=== PATIENT | male | born 1970 | race Caucasian/White ===

== ENCOUNTER 2020-10-05 01:48 | Day surgery (SDC) | payer BC, SELFPAY ==
[2020-09-24 14:19] VITALS: BMI 31.2
--- NOTE | 2020-10-05 07:18 | PM.HPGS ---
History of Present Illness History of Present Illness Consent: Risks, benefits, and alternatives have been discussed and questions answered. Patient agrees to proceed with procedure. Chief complaint: neoplasm screening Narrative: Jah Torres is a 50 year old male Referred for colon cancer screening Review of Systems Review of Systems: All systems reviewed & are unremarkable except as noted in HPI and below PMFSH Past Medical History Medical History Colon cancer screening Essential (primary) hypertension Type 2 diabetes mellitus without complications Family History Family History Mother Hypertension Family history of diabetes mellitus in first degree relative Father Family history of diabetes mellitus in first degree relative Social History Social History Smoking status: Never smoker Second hand tobacco smoke exposure: No Alcohol intake: current Drinks per week: 2 Substance use: never Substance use type: does not use Living arrangements: with family Gender identity (if verbalized by the patient): Male Spiritual care concerns: No Meds Home Medications and Allergies Home Medications Medication Instructions Recorded Confirmed Type amlodipine 10 mg tablet See Rx Instructions .ROUTE 06/10/20 09/24/20 Rx .COMPLEX #90 tablet lisinopril 30 mg tablet See Rx Instructions .ROUTE 06/15/20 09/24/20 Rx .COMPLEX #90 tablet metformin 500 mg tablet,extended 2,000 mg PO QPM #360 tablet 07/08/20 09/24/20 Rx release 24 hr zbwukkmm-ymw-rmict-vit K-lycop 1 tablet PO DAILY 09/24/20 09/24/20 History [Men's Multivitamin] Allergies Allergy/AdvReac Type Severity Reaction Status Date / Time Penicillins Allergy Unknown hives Verified 10/05/20 07:37 Exam Resp: Auscultation: clear to auscultation bilaterally Cardio: Rate: regular rate Rhythm: regular rhythm GI: GI Palp: Yes Soft to palpation and No Tenderness to palpation present (GI) Assessment and Plan Assessment and plan (1) Colon cancer screening: Code(s): Z12.11 - Encounter for screening for malignant neoplasm of colon Status: Acute Assessment and Plan: Colonoscopy with possible biopsy or polypectomy or cautery or injection of substances.
[2020-10-05 07:40] VITALS: BP 128/82; PULSE 90; RESP 18; TEMP 36.6; O2SAT 99
--- NOTE | 2020-10-05 07:47 | WPDANESEPPF ---
Anes - Initial Pre Proc Eval Procedure: Operation Date: 10/05/20 08:30 Proposed Procedures p Screening Colonoscopy - Jose Ricci MD Date/Time: 10/05/20 07:47 Surgeon: Jose Ricci MD Pre Op Diagnosis: neoplasm screening Patient Data Age: 50 Gender: M Height: 1.83 m Weight: 97.8 kg Last Vital Signs Temp 36.6 C 10/05/20 07:40 Pulse 90 10/05/20 07:40 Resp 18 10/05/20 07:40 BP 128/82 10/05/20 07:40 Pulse Ox 99 10/05/20 07:40 Allergies Allergy/AdvReac Type Severity Reaction Status Date / Time Penicillins Allergy Unknown hives Verified 10/05/20 07:37 Home Medications Medication Instructions Recorded Confirmed Type amlodipine 10 mg tablet See Rx Instructions .ROUTE 06/10/20 09/24/20 Rx .COMPLEX #90 tablet lisinopril 30 mg tablet See Rx Instructions .ROUTE 06/15/20 09/24/20 Rx .COMPLEX #90 tablet metformin 500 mg tablet,extended 2,000 mg PO QPM #360 tablet 07/08/20 09/24/20 Rx release 24 hr rebcpeva-uhu-rpguq-vit K-lycop 1 tablet PO DAILY 09/24/20 09/24/20 History [Men's Multivitamin] Patient hx anesthesia problems: none Family hx anesthesia problems: none PMFSH Past Medical History Medical History (Updated 10/05/20 @ 07:48 by Jim Espinal MD) Colon cancer screening Essential (primary) hypertension Type 2 diabetes mellitus without complications Family History Family History Mother Hypertension Family history of diabetes mellitus in first degree relative Father Family history of diabetes mellitus in first degree relative Social History Social History Smoking status: Never smoker Second hand tobacco smoke exposure: No Alcohol intake: current Drinks per week: 2 Substance use: never Substance use type: does not use Living arrangements: with family Gender identity (if verbalized by the patient): Male Spiritual care concerns: No Anes - Eval Final PreProcedure Day of Procedure 10/05/20 07:47 Patient weight: overweight Heart: regular rate and rhythm Lungs: clear to auscultation and normal air movement Airway: Mallampati scale class II Neurological: alert and oriented Last oral intake: >/= 8 hours ASA classification: III Emergent: no Anesthetic plan: proceed Anesthesia type and monitoring: general GIVS Informed Consent: The patient's anesthetic plan and its attendant risks and benefits were discussed with the patient/family/POA. Questions were solicited and answers provided to the satisfaction of the patient/family/POA.
[2020-10-05] MEDS: LACTATED RINGERS 1,000 ML 150 ML IV CONT (07:48)
[2020-10-05 07:55] LABS: Glucose Point of Care 203 mg/dl (65-105)
[2020-10-05 08:50] VITALS: BP 121/87; PULSE 98; RESP 24; O2SAT 97
[2020-10-05 09:00] VITALS: BP 115/79; PULSE 93; RESP 25; O2SAT 98
[2020-10-05 09:10] VITALS: BP 120/87; PULSE 90; RESP 18; O2SAT 98
== END 2020-10-05 09:17 | disposition home or self-care (01) ==
PROVIDERS: PCP Family Medicine; Visit Provider Internal Medicine Gastroenterology
PROC: 0DJD8ZZ Inspection of Lower Intestinal Tract, Via Natural or Artificial Opening Endoscopic (ICD-10-PCS; CPT 45378; principal; 2020-10-05 08:30)
DX: Z12.11 Encounter for screening for malignant neoplasm of colon (principal); Z79.84 Long term (current) use of oral hypoglycemic drugs; I10 Essential (primary) hypertension; E11.9 Type 2 diabetes mellitus without complications
CPT/HCPCS: 45378; 82948; J2704; J7120